=== PATIENT | male | born 1990 | race American Indian/Alaskan Native ===

== ENCOUNTER 2022-01-04 09:19 | Emergency (ER) | payer SELFPAY ==
[2022-01-04 11:17] LABS: Mucus,Urine FEW /HPF
[2022-01-04 11:20] LABS: Color,Urine Yellow (Yellow)
[2022-01-04 11:25] LABS: Basophils # (Auto) 0.1 K/mm3 (0.0-0.1); Basophils % (Auto) 0.7 % (0.0-1.8); Hemoglobin 13.6 gm/dl (11.8-15.2); Lymphocytes # (Auto) 0.9 K/mm3 (1.2-5.4); Lymphocytes % (Auto) 8.2 % (13.4-35.0); Mean Corpuscular HGB Conc 33 % (32-34); Mean Corpuscular Volume 96 fl (84-94); Monocytes # (Auto) 0.8 K/mm3 (0.0-0.8); Monocytes % (Auto) 7.9 % (0.0-7.3); Platelet Count 183 K/mm3 (140-440); Red Blood Count 4.37 M/mm3 (3.65-5.03); Red Cell Distribution Width 12.7 % (13.2-15.2)
[2022-01-04 11:26] LABS: Alanine Aminotransferase 17 units/L (7-56); Albumin 4.7 g/dL (3.9-5); BUN/Creatinine Ratio 13; Blood Urea Nitrogen 12 mg/dL (9-20); Calcium 9.4 mg/dL (8.4-10.2); Hemolysis Index 154
[2022-01-04] MEDS ORDERED: SODIUM CHLORIDE 0.9% 1000 ML 1,000 ML IV ONE ×2 (12:01→15:16)
[2022-01-04] MEDS ORDERED: ONDANSETRON 4 MG/2 ML INJ IV ONE (12:02)
[2022-01-04] MEDS ORDERED: DICYCLOMINE 20 MG TAB PO ONE (12:02)
--- NOTE | 2022-01-04 12:18 | Emergency Department Report ---
ED Abdominal Pain HPI - General Chief Complaint: Abdominal Pain Stated Complaint: STOMACH PAIN Source: patient Mode of arrival: Ambulatory Limitations: No Limitations - History of Present Illness Initial Comments: 31-year-old male presents to the ED complaining of abdominal pain nausea and vomiting and diarrhea x2 days. Patient states that the nausea and vomiting diarrhea has improved but abdominal cramping has increased. Patient states that he ate some shrimp scampi prior to the symptoms starting. Patient admits to taking a present Percocet 10 mg and the use of marijuana daily. Patient states that he can take anywhere up to 3-4 Percocet 10 mg daily. Patient states that he had a normal bowel movement prior to ED. patient denies any chest pain shortness of breath at present time. Patient states that abdominal pain is a 5 out of 10. Patient is alert and oriented x3. No acute distress noted. No ill appearance noted. MD Complaint: abdominal pain Onset/Timin -: days(s) Location: diffuse Radiation: none Migration to: no migration Severity scale (0 -10): 8 Quality: cramping Consistency: intermittent Improves With: nothing Worsens With: nothing Associated Symptoms: nausea, vomiting, diarrhea - Related Data Previous Rx's Medication Instructions Recorded Last Taken Type Ciprofloxacin HCl [Ciprofloxacin 750 mg PO DAILY 5 Days #5 tab 01/04/22 Unknown Rx TAB] Ondansetron (Nf) [Zofran TAB] 8 mg PO Q8HR PRN 3 Days #12 tablet 01/04/22 Unknown Rx Allergies Allergy/AdvReac Type Severity Reaction Status Date / Time No Known Allergies Allergy Unverified 01/04/22 09:22 ED Review of Systems ROS: Stated complaint: STOMACH PAIN Other details as noted in HPI Constitutional: denies: chills, fever Eyes: denies: eye pain, eye discharge, vision change ENT: denies: ear pain, throat pain Respiratory: denies: cough, shortness of breath, wheezing Cardiovascular: denies: chest pain, palpitations Endocrine: no symptoms reported Gastrointestinal: abdominal pain, nausea, vomiting, diarrhea Genitourinary: denies: urgency, dysuria Musculoskeletal: denies: back pain, joint swelling, arthralgia Skin: denies: rash, lesions Neurological: denies: headache, weakness, paresthesias Psychiatric: denies: anxiety, depression Hematological/Lymphatic: denies: easy bleeding, easy bruising ED Past Medical Hx - Past Medical History Previous Medical History?: No - Surgical History Past Surgical History?: No - Medications Home Medications: Home Medications Medication Instructions Recorded Confirmed Last Taken Type Ciprofloxacin HCl [Ciprofloxacin 750 mg PO DAILY 5 Days #5 tab 01/04/22 Unknown Rx TAB] Ondansetron (Nf) [Zofran TAB] 8 mg PO Q8HR PRN 3 Days #12 tablet 01/04/22 Unknown Rx ED Physical Exam - General Limitations: No Limitations General appearance: alert, in no apparent distress - Head Head exam: Present: atraumatic, normocephalic - Eye Eye exam: Present: normal appearance - ENT ENT exam: Present: mucous membranes moist - Neck Neck exam: Present: normal inspection - Respiratory Respiratory exam: Present: normal lung sounds bilaterally. Absent: respiratory distress - Cardiovascular Cardiovascular Exam: Present: regular rate, normal rhythm. Absent: systolic murmur, diastolic murmur, rubs, gallop - GI/Abdominal GI/Abdominal exam: Present: soft, normal bowel sounds - Rectal Rectal exam: Present: deferred - Extremities Exam Extremities exam: Present: normal inspection - Back Exam Back exam: Present: normal inspection - Neurological Exam Neurological exam: Present: alert, oriented X3 - Psychiatric Psychiatric exam: Present: normal affect, normal mood - Skin Skin exam: Present: warm, dry, intact, normal color. Absent: rash ED Course Vital Signs 01/04/22 01/04/22 01/04/22 09:22 12:49 14:42 Temperature 97.3 F L Pulse Rate 44 L 42 L 37 L Respiratory 18 16 Rate Blood Pressure 132/60 Blood Pressure 112/45 120/48 [Left] O2 Sat by Pulse 100 100 98 Oximetry 01/04/22 16:06 Temperature Pulse Rate 72 Respiratory 18 Rate Blood Pressure Blood Pressure 118/61 [Left] O2 Sat by Pulse 100 Oximetry ED Medical Decision Making - Lab Data Result diagrams: 01/04/22 10:31 01/04/22 10:31 - Medical Decision Making 31-year-old male presents to the ED complaining of abdominal pain nausea and vomiting and diarrhea x2 days. Patient states that the nausea and vomiting diarrhea has improved but abdominal cramping has increased. Patient states that he ate some shrimp scampi prior to the symptoms starting. Patient admits to taking a present Percocet 10 mg and the use of marijuana daily. Patient states that he can take anywhere up to 3-4 Percocet 10 mg daily. Patient states that he had a normal bowel movement prior to ED. patient denies any chest pain shortness of breath at present time. Patient states that abdominal pain is a 5 out of 10. Patient is alert and oriented x3. No acute distress noted. No ill appearance noted. Physical examination patient has diffuse tenderness throughout the abdomen area. Patient was given Toradol 30 mg IV, Zofran 4 mg IV, Bentyl and 20 mg p.o and Pepcid 20 mg IV. Patient EKG shows bradycardia with irregular rhythm at 47. No ST abnormality. Rechecked the patient is resting quietly , comfortable and feeling better. I discussed the results of diagnostic study, my clinical impression and the plan for further treatment with the patient. Patient agrees with plan and discharge at this present time. All question addressed. I have given the patient instruction regarding a diagnosis ,expectation ,follow- up and return precaution. I explained to the patient that emergent condition may arise and to return to the ED for new worsen and any new persisting condition. I have explained the importance of following up with the primary care physician or referral physician listed below has instructed. The patient verbalized understanding of discharge instruction. Critical care attestation.: If time is entered above; I have spent that time in minutes in the direct care of this critically ill patient, excluding procedure time. ED Disposition Clinical Impression: Colitis Disposition: 01 HOME / SELF CARE / HOMELESS Is pt being admited?: No Does the pt Need Aspirin: No Condition: Stable Instructions: Viral Gastroenteritis, Adult, [id number] Additional Instructions: Take medication as prescribed Return to ED for any worsening symptom Prescriptions: Ciprofloxacin HCl [Ciprofloxacin TAB] 750 mg PO DAILY 5 Days #5 tab Ondansetron (Nf) [Zofran TAB] 8 mg PO Q8HR PRN 3 Days #12 tablet PRN Reason: Nausea Referrals: BRIGHT COTTON MD [Primary Care Provider] - 3-5 Days [facility] [Provider Group] - 3-5 Days [facility] [Provider Group] - 3-5 Days Forms: Work/School Release Form(ED) Time of Disposition: 16:18
[2022-01-04] MEDS ORDERED: FAMOTIDINE 20 MG/2 ML INJ IV ONE (13:01)
[2022-01-04] MEDS ORDERED: KETOROLAC 30 MG/1 ML INJ IV ONE (13:01)
[2022-01-04 13:39] LABS: Creatine Kinase MB 1.7 ng/mL (0.0-4.0)
--- NOTE | 2022-01-04 15:40 | Cat Scan Report ---
CT ABDOMEN AND PELVIS WITH CONTRAST HISTORY: abd pain. COMPARISON: None. TECHNIQUE: CT images of the abdomen and pelvis were obtained following administration of intravenous contrast. All CT scans at this location are performed using CT dose reduction for ALARA by means of automated exposure control. CONTRAST: 100 ml of intravenous contrast administered. FINDINGS: Lungs/bones: Lung bases appear normal Abdomen/pelvis: There is intra and extrahepatic biliary ductal dilatation. The liver is diffusely he terogeneous with periportal edema. Spleen, adrenal glands, pancreas and upper GI tract appear normal. Small amount of fluid surrounding the gallbladder. There is diffuse thickening throughout the colon wall. Visualized celiac and SMA appear patent. Renal arteries appear patent. SAUD appears patent. Bilateral kidneys appear normal. No bowel obstruction is seen IMPRESSION: 1. Diffuse abnormality throughout the colon with diffuse wall thickening. Findings could represent a diffuse colitis however follow-up colonoscopy and follow-up CT recommended 2. Abnormal appearance of the liver. Liver is diffusely heterogeneous with intra-articular and extrah epatic biliary ductal dilatation. Periportal edema is also seen. Portal vein is patent. Areas of low- attenuation left and right hepatic lobe. Correlation with liver function enzymes and follow-up recomm ended. Signer Name: Ced Ceballos MD Signed: 01/04/2022 3:35 PM Workstation Name: [id number]
[2022-01-04 15:52] LABS: Amphetamine Screen,Urine Negative; Benzodiazepines Screen,Urine Negative; Cocaine Screen,Urine Negative; Methadone Screen,Urine Negative; Opiate Screen,Urine Negative
[2022-01-04 16:07] VITALS: BP 118/61
[2022-01-04 16:12] LABS: Cannabinoid Screen,Urine Positive
--- NOTE | 2022-01-07 09:31 | Electrocardiograph Report ---
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
== END 2022-01-04 16:33 | disposition home or self-care (01) ==
LOC: ED 09:19
DX: K52.9 Noninfective gastroenteritis and colitis, unspecified (principal); Z79.899 Other long term (current) drug therapy
CPT/HCPCS: 36415; 74177; 80053; 80307; 81001; 82550; 82553; 84484; 85025; 93005; 96361; 96374; 96375; 99284; J1885; J2405; J3490; J7030; Q9967